=== PATIENT | female | born 1965 | race Two or more races ===

== ENCOUNTER 2017-03-29 08:20 | Emergency (ER) | payer OTHER ==
[2017-03-29 08:43] VITALS: BP 186/79; PULSE 56; TEMP 98.4; BMI 28.0
[2017-03-29] MEDS ORDERED: predniSONE 20 MG TABLET (UD) PO ONE (09:01)
[2017-03-29] MEDS ORDERED: predniSONE 20 MG TABLET (UD) ONE (09:06)
--- NOTE | 2017-03-29 09:08 | PDOC ---
History of Present Illness - General Chief Complaint: Allergic Reaction Stated Complaint: ALLERGIC REACTION Time Seen by Provider: 03/29/17 08:53 History Source: Patient Exam Limitations: No Limitations - History of Present Illness Initial Comments: 03/29/17 09:03 Itching and spreading since last Wednesday, 8 days ago. Was exposed to poison pia while working in the yard, and has had progressive worsening of this rash. Has some facial swelling but denies lip or tongue or airway problems. Denies fever or changes in her blood sugars. Has been unable to stop the spreading or the itching. Timing/Duration: unsure Associated Symptoms: reports: denies symptoms. denies: fever/chills Past History - Travel Traveled outside of the country in the last 30 days: No Close contact w/someone who was outside of country & ill: No - Past Medical History Allergies/Adverse Reactions: Allergies Allergy/AdvReac Type Severity Reaction Status Date / Time No Known Allergies Allergy Verified 03/29/17 08:22 Home Medications: Ambulatory Orders Amlodipine Besylate [Norvasc -] 5 mg PO DAILY 03/29/17 Enalapril Maleate [Vasotec -] 10 mg PO DAILY 03/29/17 Metformin HCl [Glucophage -] 500 mg PO BID 03/29/17 Prednisone [Deltasone -] 20 mg PO BID #8 tablet 03/29/17 Diabetes: Yes HTN: Yes - Immunization History Immunization Up to Date: Yes - Suicide/Smoking/Psychosocial Hx Smoking History: Never smoked Have you smoked in the past 12 months: No Information on smoking cessation initiated: No Hx Alcohol Use: No Drug/Substance Use Hx: No Substance Use Type: None Review of Systems - Review of Systems Able to Perform ROS?: Yes Is the patient limited Frisian proficient: Yes Constitutional: Yes: Symptoms Reported, See HPI, Loss of Appetite. No: Chills, Fever, Malaise HEENTM: Yes: See HPI. No: Symptoms Reported, Nose Congestion, Throat Pain, Throat Swelling Respiratory: Yes: See HPI. No: Symptoms reported, Cough, Wheezing Musculoskeletal: Yes: See HPI. No: Symptoms Reported Integumentary: Yes: Symptoms Reported, See HPI, Lesions (started on the arms and spread to chest, neck), Pruritus, Rash Neurological: Yes: See HPI. No: Symptoms reported All Other Systems: Reviewed and Negative *Physical Exam - Vital Signs Last Vital Signs Temp Pulse Resp BP Pulse Ox 98.4 F 56 L 14 186/79 100 03/29/17 08:23 03/29/17 08:23 03/29/17 08:23 03/29/17 08:23 03/29/17 08:23 - Physical Exam General Appearance: Yes: Nourished, Appropriately Dressed, Apparent Distress, Mild Distress HEENT: positive: KERRI, Normal ENT Inspection, TMs Normal, Pharynx Normal. negative: Rhinorrhea (mild facial swelling without lips tongue or airway swelling. Airway is patent), Sinus Tenderness Neck: positive: Supple. negative: Lymphadenopathy (R), Lymphadenopathy (L) Respiratory/Chest: positive: Lungs Clear, Normal Breath Sounds. negative: Stridor, Wheezing Musculoskeletal: positive: Normal Inspection. negative: CVA Tenderness Extremity: positive: Normal Capillary Refill, Normal Inspection Integumentary: positive: Normal Color, Dry, Warm, Rash (driving scabbed and linear lesions medical assistant with appearance of poison pia, covered with calamine lotion and drying agents. Areas noted on forearms, chest wall, neck and upper back . No evidence of redness, or infection.), Swelling, Other Neurologic: positive: verifier operator II-XII NML intact, Fully Oriented Medical Decision Making - Medical Decision Making 03/29/17 09:09 Contact dermatitis probably related to poison pia that is spreading. We will initiate antihistamines with a short burst of 5 days prednisone. *DC/Admit/Observation/Transfer Diagnosis at time of Disposition: Contact dermatitis Qualifiers: Contact dermatitis type: irritant Contact dermatitis trigger: other trigger Qualified Code(s): L24.89 - Irritant contact dermatitis due to other agents; L24.89 - Irritant contact dermatitis due to other agents; L24.8 - Irritant contact dermatitis due to other agents - Discharge Dispostion Disposition: HOME Condition at time of disposition: Stable Admit: No - Patient Instructions Printed Discharge Instructions: DI for Poison Pia Allergy Additional Instructions: Rest, keep cool and dry- avoid strenuous activity or hot /humid environments Less hot showers, no abrasive soaps May use heavy creams like Eucerin or Cetaphil to keep skin moist May apply Aveeno, calamine lotion, [id number] hydrocortisone creams as needed for symptoms May use Benadryl at night for antihistamine, Zyrtec/ Millicent or Claritin for daytime antihistamine use to help with itching May use [id number] hydrocortisone cream on all areas except face Try to identify cause for rash and avoid exposures Followup with PMD in one week if no resolution Make appointment with associate software developer for evaluation when possible Continue 40 mg of prednisone daily for the next 4 days or remembering to keep monitor of your blood sugars
== END 2017-03-29 09:16 | disposition home or self-care (01) ==
LOC: JERFT 08:20
DX: L23.7 Allergic contact dermatitis due to plants, except food (principal); I10 Essential (primary) hypertension; E11.9 Type 2 diabetes mellitus without complications; Z79.84 Long term (current) use of oral hypoglycemic drugs
CPT/HCPCS: 99281-25